=== PATIENT | female | born 1990 | race Asian ===

== ENCOUNTER 2020-01-17 18:35 | Emergency (ER) | payer OTHER ==
[~2020-01-17] VITALS: Ht 162.6 cm; Wt 57.6 kg
--- NOTE | 2020-01-17 18:40 | NUR ---
Patient BIB [facility] for c/o feeling increased anxiety. A/Ox4. Speech is clear, speaks in complete sentences. No acute neuro deficits. Patient was recently put on Vyvanse and had an increase in Welbutrin dose from 300mg to 450mg and started today. Patient was instructed to seek evaluation if her anxiety worsened. Respiratory even and unlabored, no cough no sob. Denies any cp. Denies any n/v/d. Patient in bed at lowest position, sr upx2, call light within reach. Fall precautions implemented per protocol. Boyfriend at bedside with patient.
--- NOTE | 2020-01-17 18:50 | NUR ---
ERMD at bedside for MSE
[2020-01-17] MEDS ORDERED: LORAZEPAM 2 MG/1 ML VIAL IV ONE ×2 (19:00→21:00)
[2020-01-17] MEDS ORDERED: IV NORMAL SALINE 1000 ML BAG IV ONE (19:00)
[2020-01-17 19:05] LABS: BASOPHILS # (AUTO) 0.1 K/uL (0.0-8.0); BASOPHILS % (AUTO) 0.8 % (0.0-2.0); HEMATOCRIT 43.4 % (31.2-41.9); HEMOGLOBIN 14.6 g/dL (10.9-14.3); LYMPHOCYTES # (AUTO) 0.8 K/uL (20.0-40.0); LYMPHOCYTES % (AUTO) 13.1 % (20.5-51.5); MEAN CORPUSCULAR HEMOGLOBIN 29.9 uug (24.7-32.8); MEAN CORPUSCULAR HGB CONC 34 g/dL (32.3-35.6); MEAN CORPUSCULAR VOLUME 88.9 fL (75.5-95.3); MONOCYTES # (AUTO) 0.3 K/uL (2.0-10.0); MONOCYTES % (AUTO) 4.1 % (0.0-11.0); PLATELET COUNT (AUTO) 285 K/uL (179-408); RED BLOOD CELL COUNT(AUTO) 4.88 MIL/uL (3.63-4.92); WHITE BLOOD COUNT (AUTO) 6.1 K/uL (3.8-11.8)
--- NOTE | 2020-01-17 19:06 | NUR ---
Report given to LORENZO Sanders
[2020-01-17] MEDS ORDERED: LORAZEPAM 2 MG/1 ML VIAL ONE ×2 (19:09→20:51)
[2020-01-17 19:13] LABS: POTASSIUM 3.8 mmol/L (3.5-5.1)
[2020-01-17 19:19] LABS: BILIRUBIN,DIRECT 0.3 mg/dL (0.0-0.2); TOTAL PROTEIN, SERUM 8.3 g/dL (6.4-8.2)
--- NOTE | 2020-01-17 19:30 | NUR ---
PATIENT RESTING IN BED, NO ACUTE DISTRESS NOTES. BOYFRIEND AT BEDSIDE.
[2020-01-17 20:57] LABS: *URINE HCG, QUAL NEGATIVE (NEGATIVE)
[2020-01-17] MEDS ORDERED: IV NS 1000 ML 1,000 ML IV ONE (21:00)
[2020-01-17 21:24] LABS: *AMPHETAMINE, URINE POSITIVE (NEGATIVE); *BARBITURATE, URINE NEGATIVE (NEGATIVE); *CANNABINOID, URINE NEGATIVE (NEGATIVE); *COCCAINE, URINE NEGATIVE (NEGATIVE); *OPIATE, URINE NEGATIVE (NEGATIVE); *PHENCYCLIDINE SCREEN,URINE NEGATIVE (NEGATIVE)
[2020-01-18 00:50] VITALS: BP 125/70
--- NOTE | 2020-01-18 00:50 | NUR ---
Patient discharged to home in stable conditon. Written and verbal after care instructions given. Patient verbalizes understanding of instructions. PATIENT LEFT WITH STABLE GAIT.
== END 2020-01-18 00:52 | disposition home or self-care (01) ==
LOC: ER 18:38
DX: T44.995A Adverse effect of other drug primarily affecting the autonomic nervous system, initial encounter (principal); Y92.89 Other specified places as the place of occurrence of the external cause; R07.89 Other chest pain; R00.2 Palpitations
CPT/HCPCS: 36415; 71045; 80048; 80076; 80307; 84443; 84484 ×2; 84703; 85025; 85379; 93005; 96374; 96376; 99285; J2060 ×2; 70030-TC; A4663; J7030